=== PATIENT | male | born 1990 | race Caucasian/White ===

== ENCOUNTER 2017-01-06 23:31 | Emergency (ER) | payer SELFPAY ==
[~2017-01-06] VITALS: Ht 190.5 cm; Wt 72.6 kg
[2017-01-07] MEDS ORDERED: HYDROMORPHONE INJ 2 MG/ML DISP.SYRIN IM ONE (00:30)
[2017-01-07] MEDS ORDERED: ONDANSETRON 4 MG TAB.RAPDIS SL ONE (00:30)
[2017-01-07] MEDS ORDERED: ONDANSETRON 4 MG TAB.RAPDIS ONE (01:03)
[2017-01-07] MEDS ORDERED: HYDROMORPHONE 1 MG/1 ML DISP.SYRIN ONE (01:04)
[2017-01-07 02:46] VITALS: BP 103/61
== END 2017-01-07 02:46 | disposition home or self-care (01) ==
LOC: ER 23:32
DX: S01.01XA Laceration without foreign body of scalp, initial encounter (principal); S20.219A Contusion of unspecified front wall of thorax, initial encounter; S00.93XA Contusion of unspecified part of head, initial encounter; K50.90 Crohn's disease, unspecified, without complications; R73.09 Other abnormal glucose; Y04.0XXA Assault by unarmed brawl or fight, initial encounter; Y93.89 Activity, other specified; Y92.89 Other specified places as the place of occurrence of the external cause; Y99.8 Other external cause status
CPT/HCPCS: 12001; 70450; 70486; 71010; 72125; 82962; 96372; 99284; A4606; J1170; Q0162; Z7610